=== PATIENT | male | born 1950 | race Caucasian/White ===

== ENCOUNTER 2019-01-22 14:35 | Emergency (ER) | payer MEDICARE, BC ==
[~2019-01-22] VITALS: Ht 170.2 cm; Wt 78.5 kg
[2019-01-22 15:07] VITALS: BP 160/97
--- NOTE | 2019-01-22 15:28 | NUR ---
Patient discharged to home in stable condition. Written and verbal after care instructions given. Patient verbalizes understanding of instruction.
== END 2019-01-22 15:28 | disposition home or self-care (01) ==
LOC: ER 14:50
DX: S01.512A Laceration without foreign body of oral cavity, initial encounter (principal); Z85.828 Personal history of other malignant neoplasm of skin; Y33.XXXA Other specified events, undetermined intent, initial encounter; Y93.89 Activity, other specified; Y92.89 Other specified places as the place of occurrence of the external cause; Y99.8 Other external cause status